=== PATIENT | female | born 1985 | race Caucasian/White ===

== ENCOUNTER 2020-11-05 19:07 | Emergency (ER) | payer OTHER, SELFPAY ==
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
[2020-11-05 19:22] VITALS: BP 148/87; PULSE 87; RESP 16; TEMP 37.1; O2SAT 100
== END 2020-11-05 19:50 | disposition home or self-care (01) ==
PROVIDERS: Emergency Provider Nurse Practitioner Family
DX: R42 Dizziness and giddiness (principal)
CPT/HCPCS: 99211; G0463